=== PATIENT | female | born 1960 | race Caucasian/White ===

== ENCOUNTER 2019-04-03 08:09 | Outpatient (CLI) | payer MEDICARE, SELFPAY ==
[2019-04-03 08:45] VITALS: BMI 35.2
--- NOTE | 2019-04-03 08:45 | ECG_ITS ---
NAME OF STUDY: LEXISCAN SESTAMIBI STRESS TEST INDICATION: Chest Pain, LEXISCAN STRESS TEST ORDERING PHYSICIAN: Alia CLINICAL INFORMATION: Chest pain INTERPRETATION: 1. The patient was brought to the laboratory where Lexiscan was infused over 20 seconds. The resting blood pressure was 171/120. Maximum blood pressure was 174/89. The resting heart rate was 87 beats per minute. The maximum heart rate is 121 beats per minute. 2. The baseline electrocardiogram reveals sinus rhythm with a right bundle branch block 3. With Lexiscan infusion, there were no ST segment changes to suggest ischemia. 4. The patient experienced no symptoms or arrhythmias during the examination. CONCLUSION: 1. Unremarkable Lexiscan infusion. 2. Nuclear imaging to follow. 3. Hypertension Electronically Signed On 04-03-2019 17:50:58 AERODYNAMICS ENGINEER by Rodriguez Rojo M.D. [email or web address]
--- NOTE | 2019-04-03 08:46 | NMCV_ITS ---
NM esha perf SPECT r/s* [id number] Verna Barger Age: 59 Gender: F : 1960 Exam Date: 04/03/2019 08:46 Ordering Phys: Rodriguez Rojo MD ([email or web address]) Technologist: CHARLES Pal Exam Location: [facility] Indications: Chest pain STRESS TEST Please see separate stress test report in [facility] for full findings IMAGE PROTOCOL Rest/Stress 1 Lexiscan Day Radiopharmaceutical Dose (mCi) Administration Site Administered by Rest: Tc-99m 10.5 IV CHARLES Pal Sestamibi Stress:Tc-99m 32.1 IV CHARLES Pal Sestamibi Rest: 03-Apr-2019 60 Discovery 630 Stress: 03-Apr-2019 45 Discovery 630 0.4mg Lexiscan. Images obtained in supine and prone position. SPECT RESULTS Technical Quality: Good Raw Data Analysis: Breast attenuation, Subdiaphragmatic activity Image Corrections: No attenuation or motion correction applied Summed Stress Score: 0 Summed Rest Score: 5 Summed Difference Score: 0 PERFUSION FINDINGS Large area of patchy decreased tracer uptake noted in basal to distal inferior, inferolateral and anteroseptal wall on the rest images which improved significantly over stress images suggestive of artifact. FUNCTIONAL RESULTS (calculated via Gated SPECT) Stress Image LV EF (%): 66 Stress EDV (mL):85 TID: 0.98 Stress ESV (mL):29 Rest Image LV EF (%): 66 FUNCTIONAL FINDINGS: There is normal left ventricular systolic function. IMPRESSIONS Myocardial perfusion imaging is normal and low probability for obstructive coronary artery disease. EKG segment will be document separately. Leif Lowery MD (Electronically Signed) Final Date: 04 April 2019 10:03 S
[2019-04-03] MEDS: regadenoson 0.4 Mg/5 ml Syringe IVP (10:31)
[2019-04-03 10:34] VITALS: BP 175/84; PULSE 100
== END 2019-04-03 08:10 | disposition home or self-care (01) ==
LOC: CDL 08:19
PROVIDERS: Family Provider Nurse Practitioner Family; PCP Internal Medicine; Visit Provider Internal Medicine Cardiovascular Disease
DX: R07.9 Chest pain, unspecified (principal); I10 Essential (primary) hypertension
CPT/HCPCS: 78452; 93017; A9500; J2785

== ENCOUNTER → 2023-11-25 10:37 | Outpatient (BNVA) | payer MEDICARE, SELFPAY | PROVIDERS: Family Provider Nurse Practitioner Family; PCP Internal Medicine; Referring Provider Nurse Practitioner; Visit Provider Student in an Organized Health Care Education/Training Program | DX: K46.9 Unspecified abdominal hernia without obstruction or gangrene (principal) | CPT/HCPCS: 99204 ==

== ENCOUNTER → 2023-12-06 12:18 | Outpatient (BNVA) | payer MEDICARE, SELFPAY | PROVIDERS: Family Provider Nurse Practitioner Family; PCP Internal Medicine; Visit Provider Internal Medicine | DX: I10 Essential (primary) hypertension (principal) | CPT/HCPCS: 84439; 84443 ==